=== PATIENT | male | born 1995 | race Caucasian/White ===

== ENCOUNTER 2018-07-19 23:25 | Inpatient (IN) ==
--- NOTE | 2018-07-19 23:29 | Emergency Department Note ---
Disposition Clinical Impression: Acute psychosis Disposition: Admitted As Inpatient Condition: Fair Time of Disposition: 00:08 General Adult HPI - General Stated complaint: si Time Seen by Provider: 07/19/18 23:26 - Related Data Home Medications Medication Instructions Recorded Confirmed Lurasidone HCl [Latuda] 80 mg PO DAILY 06/01/18 06/01/18 PARoxetine HCl [Paroxetine HCl] 20 mg PO DAILY 06/01/18 06/01/18 Prazosin [Minipress] 1 - 2 mg PO HS 06/01/18 06/01/18 Quetiapine Fumarate [Seroquel] 100 mg PO DAILY 06/01/18 06/01/18 Allergies Allergy/AdvReac Type Severity Reaction Status Date / Time No Known Allergies Allergy Verified 04/12/18 20:34 Past Medical History - Past Medical History Medical history: Reports: no medical history Surgical history: Reports: no surgical history Psychiatric history: Reports: anxiety, depression - Social History Smoking Status: Current every day smoker Smokeless Tobacco Status: No Alcohol use: Reports: none Drug use: Reports: none Course Vital Signs Temperature 97.6 F 07/19/18 23:29 Pulse Rate 72 07/19/18 23:29 Respiratory Rate 14 07/19/18 23:29 Blood Pressure 134/72 07/19/18 23:29 O2 Sat by Pulse Oximetry 99 07/19/18 23:29 Temperature 97.6 F 07/19/18 23:29 Pulse Rate 72 07/19/18 23:29 Respiratory Rate 14 07/19/18 23:29 Blood Pressure 134/72 07/19/18 23:29 O2 Sat by Pulse Oximetry 99 07/19/18 23:29 Oxygen Delivery Oxygen Delivery Room Air Medical Decision Making - Lab Data Lab results reviewed: Yes I reviewed the patient's lab results. Result diagrams: 07/19/18 23:31 Lab Results 07/19/18 07/19/18 Range/Units 23:31 23:31 WBC 7.4 (4.3-11.1) K/mcL RBC 5.23 (4.19-5.50) M/mcL Hgb 15.6 (12.9-16.9) g/dL Hct 44.9 (37.5-50.1) % MCV 85.9 (83.0-100.0) fL MCH 29.8 (28.0-33.3) pg MCHC 34.7 (31.6-35.5) g/dL RDW 12.6 (11.5-14.5) % Plt Count 232 (140-400) K/mcL MPV 10.4 (9.4-12.4) fL Immature Gran % 0.3 (0-4) % Seg Neutrophils % 60.5 % Lymphocytes % 28.5 % Monocytes % 7.6 % Eosinophils % 2.3 % Basophils % 0.8 % Neutrophils # 4.5 (1.6-8.9) K/mcL Lymphocytes # 2.1 (0.6-4.6) K/mcL Monocytes # 0.6 (0.0-1.3) K/mcL Eosinophils # 0.2 (0.0-0.6) K/mcL Basophils # 0.1 (0.0-0.2) K/mcL Urine Opiates Screen Negative (Jtazkg=778) ng/mL Ur Barbiturates Screen Negative (Hmnoqj=314) ng/mL Ur Phencyclidine Scrn Negative (Cutoff=25) ng/mL Ur Amphetamines Screen Negative (Pbpany=8168) ng/mL U Benzodiazepines Scrn Negative (Sicvqo=036) ng/mL Urine Cocaine Screen Negative (Cutoff= 300) ng/mL U Marijuana (THC) Screen Negative (Cutoff = 50) ng/mL Ur Drug Screen Interp See Below Attestation Statement - Attestation Attestation: I examined this patient and my medical decision-making was reviewed with the Resident Physician. I agree with the documented findings, disposition and treatment plan as described except to the extent set forth below. [id number] time provided Patient arrives by EMS with an involuntary admission for psychiatric hospitalization form due to psychosis, auditory command hallucinations, anxiety and depression. He does not appear in any acute distress on arrival. We will attempt to clear him medically for behavioral admission
--- NOTE | 2018-07-19 23:31 | Emergency Department Note ---
Disposition Clinical Impression: Acute psychosis Disposition: Admitted As Inpatient Condition: Fair General Adult HPI - General Stated complaint: si Time Seen by Provider: 07/19/18 23:26 Source: patient, EMS Mode of arrival: EMS Limitations: no limitations Nursing Notes Reviewed: Yes Vital Signs Reviewed: Yes - History of Present Illness HPI Narrative: 22-year-old male with significant past medical history of depression, anxiety presenting to the emergency department chief complaint of visual hallucinations and auditory hallucinations. Patient was sent by outpatient facility for medical clearance for admission for psychiatric services. In the room patient is alert and oriented. He denies any medical concerns or complaints at this time. Denies any intentional ingestion or self-harm. - Related Data Home Medications Medication Instructions Recorded Confirmed Lurasidone HCl [Latuda] 80 mg PO DAILY 06/01/18 06/01/18 PARoxetine HCl [Paroxetine HCl] 20 mg PO DAILY 06/01/18 06/01/18 Prazosin [Minipress] 1 - 2 mg PO HS 06/01/18 06/01/18 Quetiapine Fumarate [Seroquel] 100 mg PO DAILY 06/01/18 06/01/18 Allergies Allergy/AdvReac Type Severity Reaction Status Date / Time No Known Allergies Allergy Verified 04/12/18 20:34 All systems ED: reviewed and negative except as stated. Constitutional: Denies: fever, chills, weakness Eyes: Reports: as per HPI ENT ED: Reports: as per HPI Cardiovascular: Denies: chest pain, palpitations, dyspnea on exertion Respiratory: Denies: cough, dyspnea, wheezes Gastrointestinal: Denies: abdominal pain, nausea, vomiting Genitourinary: Reports: as per HPI Musculoskeletal: Reports: as per HPI Integumentary: Reports: as per HPI Neurological: Denies: weakness, numbness, paresthesias Psychiatric: Reports: auditory hallucinations, visual hallucinations Endocrine: Reports: as per HPI Hematological/Lymphatic: Reports: as per HPI Allergic/Immunologic: Reports: as per HPI Past Medical History - Past Medical History Attestation: Yes The following information was validated with the patient. Medical history: Reports: no medical history Surgical history: Reports: no surgical history Psychiatric history: Reports: anxiety, depression - Social History Smoking Status: Current every day smoker Smokeless Tobacco Status: No Alcohol use: Reports: none Drug use: Reports: none Physical Exam - General Limitations: no limitations General appearance: alert, in no apparent distress - Head Head exam: atraumatic, normocephalic, normal inspection - Eye Eye exam: Present: normal appearance. Absent: scleral icterus, conjunctival injection - ENT ENT exam: normal exam, mucous membranes moist - Neck Neck exam: Present: normal inspection, full ROM. Absent: tenderness, meningismus - Chest Chest inspection: Present: normal inspection, symmetric chest wall rise. Absent: tenderness, rash - Respiratory Respiratory exam: Present: normal lung sounds bilaterally, respiratory distress. Absent: wheezes, stridor - Cardiovascular Cardiovascular exam: Present: regular rate, normal rhythm, normal heart sounds - Abdominal Exam Abdominal exam: Present: soft, Non-Tender. Absent: distention, guarding, rebound - Extremities Exam Extremities exam: Present: normal inspection, full ROM - Neurological Exam Neurological exam: Present: alert, oriented X3 - Psychiatric Psychiatric exam: Present: depressed, flat affect - Skin Skin exam: Present: warm, intact Course Course Narrative: 22-year-old male presenting for medical clearance for psychiatric admission. In the room patient is alert and oriented 3 and hemodynamically stable. No medical concerns or complaints at this time. We will obtain basic laboratory analysis and urine analysis. Disposition will be admission to psychiatric services pending workup. Patient agrees with this plan. - Reevaluation(s) Reevaluation #1: Patient's laboratory analysis resulted. 1a agrees to accept the patient at this time. He remains alert and oriented 3 and hemodynamically stable. Patient has been pink slipped. Vital Signs Temperature 97.6 F 07/19/18 23:29 Pulse Rate 72 07/19/18 23:29 Respiratory Rate 14 07/19/18 23:29 Blood Pressure 134/72 07/19/18 23:29 O2 Sat by Pulse Oximetry 99 07/19/18 23:29 Temperature 97.6 F 07/19/18 23:29 Pulse Rate 72 07/19/18 23:29 Respiratory Rate 14 07/19/18 23:29 Blood Pressure 134/72 07/19/18 23:29 O2 Sat by Pulse Oximetry 99 07/19/18 23:29 Oxygen Delivery Oxygen Delivery Room Air Medical Decision Making - Lab Data Lab Results 07/19/18 Range/Units 23:31 Ur Drug Screen Interp See Below
[2018-07-19 23:59] LABS: Amphetamine Screen,Urine Negative ng/mL (Cutoff=1000); Barbiturate Screen,Urine Negative ng/mL (Cutoff=200); Benzodiazepines Screen,Urine Negative ng/mL (Cutoff=200); Cannabinoid Screen,Urine Negative ng/mL (Cutoff = 50); Cocaine Screen,Urine Negative ng/mL (Cutoff= 300); Opiate Screen,Urine Negative ng/mL (Cutoff=300); Phencyclidine Screen,Urine Negative ng/mL (Cutoff=25)
[2018-07-20 00:04] LABS: Basophils # 0.1 K/mcL (0.0-0.2); Basophils % 0.8 %; Eosinophils # 0.2 K/mcL (0.0-0.6); Eosinophils % 2.3 %; Hematocrit 44.9 % (37.5-50.1); Hemoglobin 15.6 g/dL (12.9-16.9); Immature Granulocytes % 0.3 % (0-4); Lymphocytes # 2.1 K/mcL (0.6-4.6); Lymphocytes % 28.5 %; Mean Corpuscular HGB Conc 34.7 g/dL (31.6-35.5); Mean Corpuscular Hemoglobin 29.8 pg (28.0-33.3); Mean Corpuscular Volume 85.9 fL (83.0-100.0); Mean Platelet Volume 10.4 fL (9.4-12.4); Monocytes # 0.6 K/mcL (0.0-1.3); Monocytes % 7.6 %; Neutrophils # 4.5 K/mcL (1.6-8.9); Platelet Count 232 K/mcL (140-400); Red Blood Count 5.23 M/mcL (4.19-5.50); Red Cell Distribution Width 12.6 % (11.5-14.5); Segmented Neutrophils % 60.5 %
[2018-07-20 00:10] LABS: Acetaminophen < 10 mcg/mL (10-20); Alanine Aminotransferase 17 Units/L (7-52); Albumin 4.4 g/dL (3.5-5.7); Albumin/Globulin Ratio 2.4 (1.1-2.2); Alkaline Phosphatase 89 Units/L (34-104); Aspartate Amino Transferase 14 Units/L (13-39); BUN/Creatinine Ratio 11 (6-26); Bilirubin,Total 0.4 mg/dL (0.3-1.0); Blood Urea Nitrogen 10 mg/dL (6-20); Calcium 8.8 mg/dL (8.6-10.3); Carbon Dioxide 27 mEq/L (23-29); Chloride 106 mEq/L (98-107); Ethanol < 10 mg/dL (Less than 10); Globulin 1.8 g/dL (2.4-3.5); Glucose 113 mg/dL (70-105); Osmolality,Calculated 290 (280-300); Potassium 3.9 mEq/L (3.5-5.1); Salicylate < 2.5 mg/dL (15.0-30.0); Sodium 140 mEq/L (136-145); Total Protein 6.2 g/dL (6.4-8.9); eGFR For Non-African Americans > 60 (> 60)
[2018-07-20] MEDS ORDERED: MOM Conc 10 ML UD.LIQ PO PRN (01:51)
[2018-07-20] MEDS ORDERED: *HR* LORazepam 2 MG/ML VIAL IM PRN (01:51)
[2018-07-20] MEDS ORDERED: Haloperidol Lactate 5 MG/ML VIAL IM PRN (01:51)
[2018-07-20] MEDS ORDERED: Mag Hydrox/Al Hydrox/Simeth 30 ML UDC PO PRN (01:51)
[2018-07-20] MEDS ORDERED: *HR* LORazepam 1 MG TABLET PO PRN (01:51)
[2018-07-20] MEDS ORDERED: hydrOXYzine pamoate 25 MG CAPSULE PO PRN (01:51)
[2018-07-20] MEDS ORDERED: Ibuprofen 400 MG TABLET PO PRN (01:51)
[2018-07-20] MEDS: Nicotine 2 MG GUM BC PRN (07:39)
[2018-07-20] MEDS: OXcarbazepine 150 MG TABLET PO SCH ×2 (09:25→21:15)
--- NOTE | 2018-07-20 14:29 | Psychiatry History & Physical ---
Date of Encounter: 07/20/18 Time of Encounter: 14:00 History of Present Illness Patient Stated Chief Complaint: I was hearing voices Medicare Admission Attestation: For traditional Medicare patients the provided hospital inpatient services are reasonable and necessary and in the case of services not specified as inpatient-only under 42 CFR 419.22 (n), that they are appropriately provided as inpatient services in accordance 42 CFR 412.3. For Critical Access Hospital the patient may reasonably be expected to be discharged or transferred to a hospital within 96 hours after admission to the Critical Access Hospital. Admitted From: Emergency Dept Plans for Post Hospital Care: Home History of Present Illness: Mr. Barnett is a 22 year old male ID the patient is a 22-year-old single white male he is a resident of [facility]. His middle under an involuntary hold. Chief complaint I want to go back to [facility]. I was hearing voices and seeing things. present illness. The patient reports a long-standing history of psychiatric disturbance he cannot give me precise information. The patient has been a resident of the [facility] and is hoping to have a place to live he is currently homeless. The patient is on the following regimen of medicines Seroquel 200 mg daily at bedtime oxcarbazepine 300 mg twice a day prazosin 1 mg daily at bedtime the 2-80 mg every afternoon with food Paxil 20 mg every morning. Patient was seen at [facility] he returned late from a walk. After this he was confronted about his behavior. Patient felt that having an intensification of hearing voices and seeing faces to features of his psychosis. 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 He has limited resources in the community. Past psychiatric history about age 11 or 12 he was seen for counseling and placed on psychiatric medicines in a clinic in [facility]. He later moved [place]. Past medical history surgeries none, illnesses none smokes one pack Family history of present 1 known a where his father and others had problems. Social history patient never he graduated from high school and then [place] he has an appointment Past Med Surg Social Fam HX - Past Medical History Source: patient Medical history: no medical history - Past Psychiatric History Psychiatric history: Reports: schizophrenia Family psychiatric history: Yes Family History of Suicide: None - Past Surgical History Surgical History: no surgical history - Social History Smoking Status: Current every day smoker Smokeless Tobacco Status: No Alcohol use: none Drug use: none Occupational status: previously employed Current living situation: [facility] Activity Level: Independent ambulation Recent Out of Country Travel Within the Last 8 Weeks: No Exposure or Possible Exposure to Illness During Travel: No Medications & Allergies Lurasidone HCl [Latuda] 80 mg PO DAILY 06/01/18 [History] PARoxetine HCl [Paroxetine HCl] 20 mg PO DAILY 06/01/18 [History] OXcarbazepine [Oxcarbazepine] 300 mg PO BID 07/20/18 [History] Prazosin [Minipress] 1 mg PO HS 07/20/18 [History] Quetiapine Fumarate [SEROquel] 200 mg PO HS PRN 07/20/18 [History] Allergy/AdvReac Type Severity Reaction Status Date / Time No Known Allergies Allergy Verified 04/12/18 20:34 Review of Systems Psychiatric: Reports: auditory hallucinations, visual hallucinations Exam - HEENT Head exam IM: Present: atraumatic Eye exam IM: Present: EOMI, normal appearance, PERRL ENT exam IM: Present: normal exam - Neurological Neurological exam: Present: CN II-XII intact - Respiratory Respiratory exam IM: Present: CTAB - GI/Abdominal GI/Abdominal exam IM: Present: normal bowel sounds, soft. Absent: tenderness - Extremities Extremities exam IM: Present: full ROM - Skin Skin exam IM: Present: dry, warm - Constitutional Vitals: Temp Pulse Resp BP Pulse Ox 99 F 77 18 132/71 99 07/20/18 09:00 07/20/18 09:00 07/20/18 09:00 07/20/18 09:00 07/20/18 09:00 General appearance: age & developmentally appropriate, well-groomed, well- nourished - Musculoskeletal Gait: normal Station: relaxed Strength & Tone: normal for patient - Psychiatric Patient Orientation: Yes Person, Yes Time, Yes Place Level of alertness: Alert Behavior: calm, cooperative Psychomotor activity: Normal Eye Contact: Maintains Eye Contact Mood Description: Euthymic/stable Affect description: congruent with mood, full range Speech Volume: Normal Speech pattern: normal rate, normal rhythm, normal tone, fluent, spontaneous Language & Vocabulary: consistent with education Thought Process: Linear, Goal Oriented Thought Content: No Suicidal ideation, No Homicidal ideation, No Overt delusions Perceptual Disturbances: Yes Auditory hallucinations, Yes Visual hallucinations Attention Span Ability: Capable of Sustained Attention Memory Description: Grossly Intact Patient Reliability: Reliable Historian Fund of knowledge: Yes abstraction ability, Yes below average Intelligence Estimate: Below Average Judgment: Fair Insight: Partial Results - Drug Levels and Toxicology Drug Levels and Toxicology: Drug Levels and Toxicity 07/19/18 07/19/18 23:31 23:31 Urine Opiates Screen Negative Acetaminophen < 10 L Ur Barbiturates Screen Negative Ur Phencyclidine Scrn Negative Ur Amphetamines Screen Negative U Benzodiazepines Scrn Negative Urine Cocaine Screen Negative U Marijuana (THC) Screen Negative Ethyl Alcohol < 10 - Labs Labs: Laboratory Last Values WBC 7.4 K/mcL (4.3-11.1) 07/19/18 23:31 RBC 5.23 M/mcL (4.19-5.50) 07/19/18 23:31 Hgb 15.6 g/dL (12.9-16.9) 07/19/18 23:31 Hct 44.9 % (37.5-50.1) 07/19/18 23:31 MCV 85.9 fL (83.0-100.0) 07/19/18 23:31 MCH 29.8 pg (28.0-33.3) 07/19/18 23:31 MCHC 34.7 g/dL (31.6-35.5) 07/19/18 23:31 RDW 12.6 % (11.5-14.5) 07/19/18 23:31 Plt Count 232 K/mcL (140-400) 07/19/18 23:31 MPV 10.4 fL (9.4-12.4) 07/19/18 23:31 Immature Gran % 0.3 % (0-4) 07/19/18 23:31 Seg Neutrophils % 60.5 % 07/19/18 23:31 Lymphocytes % 28.5 % 07/19/18 23:31 Monocytes % 7.6 % 07/19/18 23:31 Eosinophils % 2.3 % 07/19/18 23:31 Basophils % 0.8 % 07/19/18 23:31 Neutrophils # 4.5 K/mcL (1.6-8.9) 07/19/18 23:31 Lymphocytes # 2.1 K/mcL (0.6-4.6) 07/19/18 23:31 Monocytes # 0.6 K/mcL (0.0-1.3) 07/19/18 23:31 Eosinophils # 0.2 K/mcL (0.0-0.6) 07/19/18 23:31 Basophils # 0.1 K/mcL (0.0-0.2) 07/19/18 23:31 Sodium 140 mEq/L (136-145) 07/19/18 23:31 Potassium 3.9 mEq/L (3.5-5.1) 07/19/18 23:31 Chloride 106 mEq/L (98-107) 07/19/18 23:31 Carbon Dioxide 27 mEq/L (23-29) 07/19/18 23:31 BUN 10 mg/dL (6-20) 07/19/18 23:31 Creatinine 0.89 mg/dL (0.70-1.30) 07/19/18 23:31 Est GFR ( Amer) > 60 (> 60) 07/19/18 23:31 Est GFR (Non-Af Amer) > 60 (> 60) 07/19/18 23:31 BUN/Creatinine Ratio 11 (6-26) 07/19/18 23:31 Glucose 113 mg/dL (70-105) H 07/19/18 23:31 Calculated Osmolality 290 (280-300) 07/19/18 23:31 Calcium 8.8 mg/dL (8.6-10.3) 07/19/18 23:31 Total Bilirubin 0.4 mg/dL (0.3-1.0) 07/19/18 23:31 AST 14 Units/L (13-39) 07/19/18 23:31 ALT 17 Units/L (7-52) 07/19/18 23:31 Alkaline Phosphatase 89 Units/L (34-104) 07/19/18 23:31 Serum Total Protein 6.2 g/dL (6.4-8.9) L 07/19/18 23:31 Albumin 4.4 g/dL (3.5-5.7) 07/19/18 23:31 Globulin 1.8 g/dL (2.4-3.5) L 07/19/18 23:31 Albumin/Globulin Ratio 2.4 (1.1-2.2) H 07/19/18 23:31 Salicylates < 2.5 mg/dL (15.0-30.0) L 07/19/18 23:31 Urine Opiates Screen Negative ng/mL (Arnine=419) 07/19/18 23:31 Acetaminophen < 10 mcg/mL (10-20) L 07/19/18 23:31 Ur Barbiturates Screen Negative ng/mL (Xrdbkm=993) 07/19/18 23:31 Ur Phencyclidine Scrn Negative ng/mL (Cutoff=25) 07/19/18 23:31 Ur Amphetamines Screen Negative ng/mL (Owrjql=6580) 07/19/18 23:31 U Benzodiazepines Scrn Negative ng/mL (Lalbmj=148) 07/19/18 23:31 Urine Cocaine Screen Negative ng/mL (Cutoff= 300) 07/19/18 23:31 U Marijuana (THC) Screen Negative ng/mL (Cutoff = 50) 07/19/18 23:31 Ur Drug Screen Interp See Below 07/19/18 23:31 Ethyl Alcohol < 10 mg/dL (Less than 10) 07/19/18 23:31 Assessment and Plan (1) Acute exacerbation of chronic paranoid schizophrenia Current visit: Yes Status: Acute Plan: Admit inpatient for safety and stabilization, Close observation, Monitor sleep, Secure weapons Risks, benefits, side effects, alternatives discussed w/pt: Yes Patient agreeable to treatment: Yes Plans for Post Hospital Care: Home Estimated Length of Stay (Days): 4 (2) Cigarette nicotine dependence, uncomplicated Current visit: Yes Status: Chronic Plan: Monitor sleep, Other Risks, benefits, side effects, alternatives discussed w/pt: Yes Patient agreeable to treatment: Yes Plans for Post Hospital Care: Home (3) Alcohol use disorder, mild, in early remission, in controlled environment Current visit: Yes Status: Acute Plan: Other Risks, benefits, side effects, alternatives discussed w/pt: Yes Patient agreeable to treatment: Yes Plans for Post Hospital Care: Home
[2018-07-21] MEDS: OXcarbazepine 150 MG TABLET PO SCH ×2 (08:24→20:22)
[2018-07-21] MEDS: Nicotine 2 MG GUM BC PRN ×2 (10:20→14:47)
--- NOTE | 2018-07-21 12:53 | Psychiatry Progress Note ---
Date of Encounter: 07/21/18 Time of Encounter: 12:15 Subjective Interval history: ID the patient is a 22-year-old singlea on involuntary hold. Chief complaint I want to go back to [facility]. I was hearing voices and seeing things. Mr. present illness. The patient reports a long-standing history of psychiatric disturbance he cannot give me precise information. The patient has been a resident of the [facility] and is hoping to have a place to live he is currently homeless. The patient is on the following regimen of medicines Seroquel 200 mg daily at bedtime oxcarbazepine 300 mg twice a day prazosin 1 mg daily at bedtime the 2-80 mg every afternoon with food Paxil 20 mg every morning. Patient was seen at [facility] he returned late from a walk. After this he was confronted about his behavior. Patient felt that having an intensification of hearing voices and seeing faces to features of his psychosis. Pt is a 22 yo,, male, resident of [facility] who presents for Schizoaffective Depressed type . Pt noted that he feels much better. Pt denied any side effects to current medications. Pt noted he felt safe and comfortable on the unit and will tell staff I feel ready to go. Pt was in agreement with current treatment plan. Pt noted that he is doing alright today. Pt noted he slept alright about 8 hrs last night. Pt noted his appetite is good. Pt rated his depression a 0, on a scale of zero to ten with ten being the worst and zero being none. Pt rate his anxiety a 0, on the same scale. Pt denied any auditory or visual hallucinations. Pt denied any current thoughts to harm himself or anyone else. No TD noted, AIMS=0 Tobacco: 1ppd Alcohol: Denies any current Street: Denies any current Caffeine: 2-3 drinks per day Pt denies any hx of HIV, hep C, TBI or Seizures. Plan: 1.Interval hx 2.Continue current medications 3.Review current labs 4.Pt had an opportunity to ask questions and discuss current treatment plan. 5.Supportive therapy was provided 6.Pt encouraged to consider group or individual therapy 7.Pt was in agreement with treatment plan. 8. Pt was educated on the risks benefits and side effects of current medications Review of Systems Constitutional: Denies: fever, chills, weakness, weight change Eyes: Denies: eye pain, vision change Ears, Nose, Throat: Denies: ear pain, throat pain, dental pain, hearing loss, congestion Cardiovascular: Denies: chest pain, palpitations, dyspnea on exertion Respiratory: Denies: cough, dyspnea, wheezes Gastrointestinal: Denies: abdominal pain, nausea, vomiting, diarrhea, constipation Musculoskeletal: Denies: joint swelling, joint pain Neurological: Denies: headache, weakness, numbness, memory loss Psychiatric: Reports: auditory hallucinations, visual hallucinations Results - Vital Signs Vital Signs: Temp Pulse Resp BP Pulse Ox 98.3 F 78 20 127/65 99 07/21/18 09:00 07/21/18 09:00 07/21/18 09:00 07/21/18 09:00 07/21/18 09:00 Assessment and Plan (1) Acute psychosis Current visit: Yes Status: Acute Plan: Continue hospitalization, Close observation, Suicide Precautions per unit protocol, Encourage participation in unit milieu, Group Therapy, Monitor sleep, Monitor appetite Risks, benefits, side effects, alternatives discussed w/pt: Yes Patient agreeable to treatment: Yes (2) Acute exacerbation of chronic paranoid schizophrenia Current visit: Yes Status: Acute Plan: Continue hospitalization, Close observation, Suicide Precautions per unit protocol, Encourage participation in unit milieu, Group Therapy, Monitor sleep, Monitor appetite Risks, benefits, side effects, alternatives discussed w/pt: Yes Patient agreeable to treatment: Yes (3) Cigarette nicotine dependence, uncomplicated Current visit: Yes Status: Chronic Plan: Continue hospitalization, Close observation, Suicide Precautions per unit protocol, Encourage participation in unit milieu, Group Therapy, Monitor sleep, Monitor appetite Risks, benefits, side effects, alternatives discussed w/pt: Yes Patient agreeable to treatment: Yes (4) Alcohol use disorder, mild, in early remission, in controlled environment Current visit: Yes Status: Acute Plan: Continue hospitalization, Close observation, Suicide Precautions per unit protocol, Encourage participation in unit milieu, Group Therapy, Monitor sleep, Monitor appetite Risks, benefits, side effects, alternatives discussed w/pt: Yes Patient agreeable to treatment: Yes Consult Discharge Plan - Plan Psychiatry Exam - Constitutional Vitals: Temp Pulse Resp BP Pulse Ox 98.3 F 78 20 127/65 99 07/21/18 09:00 07/21/18 09:00 07/21/18 09:00 07/21/18 09:00 07/21/18 09:00 General appearance: age & developmentally appropriate, well-groomed, well- nourished - Musculoskeletal Gait: normal Station: relaxed Strength & Tone: normal for patient - Psychiatric Patient Orientation: Yes Person, Yes Time, Yes Place Level of alertness: Alert Behavior: calm, cooperative Psychomotor activity: Normal Eye Contact: Maintains Eye Contact Mood Description: Euthymic/stable Affect description: congruent with mood, full range Speech Volume: Normal Speech pattern: normal rate, normal rhythm, normal tone, fluent, spontaneous Language & Vocabulary: consistent with education Thought Process: Linear, Goal Oriented, Thought Blocking Thought Content: No Suicidal ideation, No Homicidal ideation, No Overt delusions Perceptual Disturbances: No Auditory hallucinations, No Visual hallucinations Attention Span Ability: Capable of Focused Attention Memory Description: Grossly Intact Patient Reliability: Reliable Historian Fund of knowledge: Yes abstraction ability, Yes aware of current events Intelligence Estimate: Average Judgment: Limited Insight: Partial
[2018-07-22] MEDS: OXcarbazepine 150 MG TABLET PO SCH ×2 (08:26→20:28)
[2018-07-22] MEDS: Nicotine 2 MG GUM BC PRN ×2 (10:17→17:14)
--- NOTE | 2018-07-22 11:07 | Psychiatry Progress Note ---
Date of Encounter: 07/22/18 Time of Encounter: 10:30 Subjective Interval history: Pt is a 22 yo,, male, resident of [facility] who presents for Schizoaffective Depressed type . Pt noted that he feels much better. Pt denied any side effects to current medications. Pt noted he felt safe and comfortable on the unit and will tell staff I feel ready to go. Pt was in agreement with current treatment plan. Pt noted that he is doing really good today. Pt noted he slept good about 8 hrs last night. Pt noted his appetite is good. Pt rated his depression a 0, on a scale of zero to ten with ten being the worst and zero being none. Pt rate his anxiety a 0, on the same scale. Pt denied any auditory or visual hallucinations. Pt denied any current thoughts to harm himself or anyone else. Chief complaint I want to go back to [facility]. I was hearing voices and seeing things. The patient reports a long-standing history of psychiatric disturbance he cannot give me precise information. The patient has been a resident of the [facility] and is hoping to have a place to live he is currently homeless. The patient is on the following regimen of medicines Seroquel 200 mg daily at bedtime oxcarbazepine 300 mg twice a day prazosin 1 mg daily at bedtime the 2-80 mg every afternoon with food Paxil 20 mg every morning. Patient was seen at [facility] he returned late from a walk. After this he was confronted about his behavior. Patient felt that having an intensification of hearing voices and seeing faces to features of his psychosis. No TD noted, AIMS=0 Tobacco: 1ppd Alcohol: Denies any current Street: Denies any current Caffeine: 2-3 drinks per day Pt denies any hx of HIV, hep C, TBI or Seizures. Plan: 1.Interval hx 2.Continue current medications 3.Review current labs 4.Pt had an opportunity to ask questions and discuss current treatment plan. 5.Supportive therapy was provided 6.Pt encouraged to consider group or individual therapy 7.Pt was in agreement with treatment plan. 8. Pt was educated on the risks benefits and side effects of current medications 9. [place] [facility] [place] pending continued stability and compliance Review of Systems Constitutional: Denies: fever, chills, weakness, weight change Eyes: Denies: eye pain, vision change Ears, Nose, Throat: Denies: ear pain, throat pain, dental pain, hearing loss, congestion Cardiovascular: Denies: chest pain, palpitations, dyspnea on exertion Respiratory: Denies: cough, dyspnea, wheezes Gastrointestinal: Denies: abdominal pain, nausea, vomiting, diarrhea, constipation Musculoskeletal: Denies: joint swelling, joint pain Neurological: Denies: headache, weakness, numbness, memory loss Psychiatric: Reports: auditory hallucinations, visual hallucinations Results - Vital Signs Vital Signs: Temp Pulse Resp BP Pulse Ox 97.8 F 74 18 116/71 99 07/22/18 09:00 07/22/18 09:00 07/22/18 09:00 07/22/18 09:00 07/22/18 09:00 Assessment and Plan (1) Acute psychosis Current visit: Yes Status: Acute Plan: Continue hospitalization, Close observation, Suicide Precautions per unit protocol, Encourage participation in unit milieu, Group Therapy, Monitor sleep, Monitor appetite Risks, benefits, side effects, alternatives discussed w/pt: Yes Patient agreeable to treatment: Yes (2) Acute exacerbation of chronic paranoid schizophrenia Current visit: Yes Status: Acute Plan: Continue hospitalization, Close observation, Suicide Precautions per unit protocol, Encourage participation in unit milieu, Group Therapy, Monitor sleep, Monitor appetite Risks, benefits, side effects, alternatives discussed w/pt: Yes Patient agreeable to treatment: Yes (3) Cigarette nicotine dependence, uncomplicated Current visit: Yes Status: Chronic Plan: Continue hospitalization, Close observation, Suicide Precautions per unit protocol, Encourage participation in unit milieu, Group Therapy, Monitor sleep, Monitor appetite Risks, benefits, side effects, alternatives discussed w/pt: Yes Patient agreeable to treatment: Yes (4) Alcohol use disorder, mild, in early remission, in controlled environment Current visit: Yes Status: Acute Plan: Continue hospitalization, Close observation, Suicide Precautions per unit protocol, Encourage participation in unit milieu, Group Therapy, Monitor sleep, Monitor appetite Risks, benefits, side effects, alternatives discussed w/pt: Yes Patient agreeable to treatment: Yes Consult Discharge Plan - Plan Additional Instructions: D/C pt back to [facility] on current medications if pt continues to remain sober. Pt to follow up with [facility] upon discharge as well. Referrals: NONE,PCP [Primary Care Provider] - Psychiatry Exam - Constitutional Vitals: Temp Pulse Resp BP Pulse Ox 97.8 F 74 18 116/71 99 07/22/18 09:00 07/22/18 09:00 07/22/18 09:00 07/22/18 09:00 07/22/18 09:00 General appearance: age & developmentally appropriate, well-groomed, well- nourished - Musculoskeletal Gait: normal Station: relaxed Strength & Tone: normal for patient - Psychiatric Patient Orientation: Yes Person, Yes Time, Yes Place Level of alertness: Alert Behavior: calm, cooperative, anxious Psychomotor activity: Normal Eye Contact: Maintains Eye Contact Mood Description: Euthymic/stable, Anxious Affect description: congruent with mood, full range Speech Volume: Normal Speech pattern: normal rate, normal rhythm, normal tone, fluent, spontaneous Language & Vocabulary: consistent with education Thought Process: Linear, Goal Oriented Thought Content: No Suicidal ideation, No Homicidal ideation, No Overt delusions, Yes Grandiose delusion Perceptual Disturbances: No Auditory hallucinations, No Visual hallucinations Attention Span Ability: Capable of Sustained Attention Memory Description: Grossly Intact Patient Reliability: Questionable Historian Fund of knowledge: Yes average, Yes aware of current events Intelligence Estimate: Average Judgment: Limited Insight: Minimal
[2018-07-23] MEDS: OXcarbazepine 150 MG TABLET PO SCH (08:28)
[2018-07-23 09:07] VITALS: BP 116/67
[2018-07-23] MEDS: Nicotine 2 MG GUM BC PRN ×2 (11:15→14:48)
--- NOTE | 2018-07-23 16:27 | Discharge Summary ---
Date of Encounter: 07/25/18 Time of Encounter: 16:25 Diagnosis - Discharge Diagnosis (1) Acute exacerbation of chronic paranoid schizophrenia Status: Acute Comments: Patient continuing on medication that he has been on in past (2) Cigarette nicotine dependence, uncomplicated Priority: Secondary Status: Chronic Medications - Discharge Medications Lurasidone HCl [Latuda] 80 mg PO DAILY 06/01/18 [History] PARoxetine HCl [Paroxetine HCl] 20 mg PO DAILY 06/01/18 [History] OXcarbazepine [Oxcarbazepine] 300 mg PO BID 07/20/18 [History] Prazosin [Minipress] 1 - 2 mg PO HS 07/20/18 [History] Quetiapine Fumarate [Seroquel] 200 mg PO HS PRN 07/20/18 [History] Allergy/AdvReac Type Severity Reaction Status Date / Time No Known Allergies Allergy Verified 07/23/18 10:51 Results Procedures and tests throughout hospitalization: Completed Lab Orders Category Date Time Status Acetaminophen Stat Lab 07/19/18 23:31 Completed Complete Blood Count [HEME] Stat Lab 07/19/18 23:31 Completed Comprehensive Metabolic Panel Stat Lab 07/19/18 23:31 Completed Ethanol Stat Lab 07/19/18 23:31 Completed Salicylate Stat Lab 07/19/18 23:31 Completed rapid urine drug screen [Drug Screen, Urine] [UCHEM] Lab 07/19/18 23:31 Completed Stat Provider Date of admission: 07/20/18 00:19 Primary care physician: PCP NONE Discharging clinician: Dee Lucero Psychiatry Exam - Constitutional Vitals: Temp Pulse Resp BP Pulse Ox 98.9 F 75 16 116/67 100 07/23/18 09:00 07/23/18 09:00 07/23/18 09:00 07/23/18 09:00 07/23/18 09:00 General appearance: age & developmentally appropriate, well-groomed, well- nourished - Musculoskeletal Gait: normal Station: relaxed Strength & Tone: normal for patient - Psychiatric Patient Orientation: Yes Person, Yes Time, Yes Place Level of alertness: Alert Behavior: calm, cooperative Psychomotor activity: Normal Eye Contact: Maintains Eye Contact Mood Description: Euthymic/stable Affect description: congruent with mood, full range Speech Volume: Normal Speech pattern: normal rate, normal rhythm, normal tone, fluent, spontaneous, clear, coherent Language & Vocabulary: consistent with education Thought Process: Linear, Goal Oriented Thought Content: No Suicidal ideation, No Homicidal ideation, No Overt delusions Perceptual Disturbances: No Auditory hallucinations, No Visual hallucinations Attention Span Ability: Capable of Focused Attention Memory Description: Grossly Intact Patient Reliability: Reliable Historian Fund of knowledge: Yes average, Yes aware of current events Intelligence Estimate: Average Judgment: Fair Insight: Partial Hospital Course Hospital course: Mr. Barnett is a 22 year old male admitted for increase in auditory hallucinations and visual hallucinations AT the time of admission patient taking oxcarbazepine 300mg BID, Prazosin 1mg/d,Paxil 20mg/d, Latuda 80mg/d and Seroquel 200g/hs prn. Patient was homeless at admission and was hoping to reutrn to [facility]. Patient demonstrated improvement in the hospital milieu and denies A/V hallucinations at the time of discharge. Time spent discussing smoking cessation with patient: 3 to 10 minutes Does patient wish to continue nicotine replacement upon disc: No - Time Spent with Patient Total time spent providing and/or coordinating discharge services: Less than 30 minutes Assessment and Plan - Patient/Caregiver Discharge Instructions Activity: resume usual activities as tolerated Diet: regular diet Additional Instructions: D/C pt back to [facility] on current medications if pt continues to remain sober. Pt to follow up with [facility] upon discharge as well. - Follow up Plan Follow up with: NONE,PCP [Primary Care Provider] - Functional capacity at discharge: independent ambulation Disposition: Home, Self-Care Quality - Multiple Antipsychotics Patient discharged on 2 or more antipsychotic medications: Yes (Seroquel is low dose and a prn for sleep and mood) - Justification Documentation of: Other justification (Seroquel is low dose used as a prn for sleep, mood) Procedures - Procedures Procedures: Medication Management, Crisis Stabilization, Supportive Therapy, Group Therapy, Psychoeducational Therapy
== END 2018-07-23 17:35 | disposition home or self-care (01) | DRG 750 ==
LOC: EMEROOARM 23:25 → 1ANU 07-20 00:19 → SUATTDRO 07-20 00:19 → 1ANU 07-20 00:56
PROVIDERS: ADMIT Psychiatry & Neurology Forensic Psychiatry; ATTEND Psychiatry & Neurology Psychiatry

== ENCOUNTER 2019-04-06 20:55 | Observation (INO) ==
[2019-04-06] MEDS ORDERED: *HR* LORazepam 2 MG/ML VIAL IM ONE (21:06)
[2019-04-06] MEDS ORDERED: 0.9 % Sodium Chloride 1,000 ML IVC ONE ×2 (21:06→21:07)
[2019-04-06] MEDS ORDERED: *HR* LORazepam 2 MG/ML VIAL IVP ONE (21:27)
[2019-04-06 21:56] LABS: Basophils # 0.1 K/mcL (0.0-0.2); Basophils % 0.6 %; Eosinophils # 0.2 K/mcL (0.0-0.6); Hematocrit 45.8 % (37.5-50.1); Hemoglobin 16.3 g/dL (12.9-16.9); Immature Granulocytes % 0.4 % (0-4); Lymphocytes # 2.1 K/mcL (0.6-4.6); Lymphocytes % 25.4 %; Mean Corpuscular HGB Conc 35.6 g/dL (31.6-35.5); Mean Corpuscular Hemoglobin 30.4 pg (28.0-33.3); Mean Corpuscular Volume 85.3 fL (83.0-100.0); Mean Platelet Volume 9.8 fL (9.4-12.4); Monocytes # 0.6 K/mcL (0.0-1.3); Monocytes % 6.8 %; Neutrophils # 5.4 K/mcL (1.6-8.9); Platelet Count 299 K/mcL (140-400); Red Blood Count 5.37 M/mcL (4.19-5.50); Red Cell Distribution Width 12.8 % (11.5-14.5); Segmented Neutrophils % 64.8 %; White Blood Count 8.4 K/mcL (4.3-11.1)
[2019-04-06 22:18] LABS: Alanine Aminotransferase 8 Units/L (7-52); Albumin 4.4 g/dL (3.5-5.7); Albumin/Globulin Ratio 2.1 (1.1-2.2); Alkaline Phosphatase 89 Units/L (34-104); Aspartate Amino Transferase 14 Units/L (13-39); BUN/Creatinine Ratio 10 (6-26); Bilirubin,Direct 0.1 mg/dL (0.0-0.2); Bilirubin,Indirect 0.3 mg/dL (0.0-1.2); Bilirubin,Total 0.4 mg/dL (0.3-1.0); Blood Urea Nitrogen 9 mg/dL (6-20); Calcium 8.9 mg/dL (8.6-10.3); Carbon Dioxide 13 mEq/L (23-29); Chloride 112 mEq/L (98-107); Globulin 2.1 g/dL (2.4-3.5); Glucose 76 mg/dL (70-105); Osmolality,Calculated 289 (280-300); Potassium 3.5 mEq/L (3.5-5.1); Sodium 141 mEq/L (136-145); Total Protein 6.5 g/dL (6.4-8.9); Troponin I < 0.03 ng/mL (< 0.04); eGFR For African Americans > 60 (> 60); eGFR For Non-African Americans > 60 (> 60)
[2019-04-06 22:36] LABS: Ethanol 121 mg/dL (Less than 10)
[2019-04-07 00:01] LABS: Bilirubin,Urine Negative (Negative); Blood,Urine Negative (Negative); Clarity,Urine Clear (Clear); Color,Urine Yellow (Yellow); Glucose,Urine (UA) Normal (Normal); Ketones,Urine Trace mg/dL (Negative); Leukocyte Esterase,Urine Negative (Negative); Nitrite,Urine Negative (Negative); PH,Urine 6.5 pH Units (5.0-8.0); Protein,Urine Negative (Neg-Trace); Specific Gravity,Urine 1.011 (1.010-1.025); Urobilinogen,Urine Normal (Normal)
[2019-04-07 00:11] LABS: Amphetamine Screen,Urine Negative ng/mL (Cutoff=1000); Barbiturate Screen,Urine Negative ng/mL (Cutoff=200); Benzodiazepines Screen,Urine Negative ng/mL (Cutoff=200); Cannabinoid Screen,Urine Negative ng/mL (Cutoff = 50); Cocaine Screen,Urine Negative ng/mL (Cutoff= 300); Opiate Screen,Urine Negative ng/mL (Cutoff=300); Phencyclidine Screen,Urine Negative ng/mL (Cutoff=25)
[2019-04-07] MEDS ORDERED: 0.9 % Sodium Chloride 1,000 ML IVC SCH (04:45)
[2019-04-07] MEDS ORDERED: *HR* LORazepam 2 MG/ML VIAL IVP PRN ×3 (04:47)
[2019-04-07] MEDS ORDERED: Naloxone 0.4 MG/ML INJ IVP PRN (05:09)
[2019-04-07 06:32] LABS: Basophils % 0.4 %; Eosinophils # 0.2 K/mcL (0.0-0.6); Eosinophils % 2.3 %; Hematocrit 45.4 % (37.5-50.1); Hemoglobin 15.4 g/dL (12.9-16.9); Immature Granulocytes % 0.2 % (0-4); Lymphocytes # 2.4 K/mcL (0.6-4.6); Mean Corpuscular HGB Conc 33.9 g/dL (31.6-35.5); Mean Corpuscular Hemoglobin 30.7 pg (28.0-33.3); Mean Corpuscular Volume 90.6 fL (83.0-100.0); Mean Platelet Volume 10.3 fL (9.4-12.4); Monocytes # 0.7 K/mcL (0.0-1.3); Monocytes % 7.9 %; Neutrophils # 5.7 K/mcL (1.6-8.9); Platelet Count 240 K/mcL (140-400); Red Blood Count 5.01 M/mcL (4.19-5.50); Red Cell Distribution Width 13.1 % (11.5-14.5); Segmented Neutrophils % 63.2 %; White Blood Count 9.1 K/mcL (4.3-11.1)
[2019-04-07 06:53] LABS: Alanine Aminotransferase 7 Units/L (7-52); Albumin 4.1 g/dL (3.5-5.7); Albumin/Globulin Ratio 2.4 (1.1-2.2); Alkaline Phosphatase 87 Units/L (34-104); Aspartate Amino Transferase 12 Units/L (13-39); BUN/Creatinine Ratio 13 (6-26); Bilirubin,Total 0.5 mg/dL (0.3-1.0); Blood Urea Nitrogen 11 mg/dL (6-20); Calcium 8.7 mg/dL (8.6-10.3); Carbon Dioxide 26 mEq/L (23-29); Chloride 109 mEq/L (98-107); Globulin 1.7 g/dL (2.4-3.5); Glucose 82 mg/dL (70-105); Osmolality,Calculated 294 (280-300); Potassium 3.8 mEq/L (3.5-5.1); Sodium 143 mEq/L (136-145); Total Protein 5.8 g/dL (6.4-8.9); eGFR For African Americans > 60 (> 60); eGFR For Non-African Americans > 60 (> 60)
[2019-04-07] MEDS: Ibuprofen 600 MG TABLET PO PRN ×2 (12:51→20:56)
[2019-04-07] MEDS ORDERED: Acetaminophen 325 MG TABLET PO PRN (16:10)
[2019-04-07] MEDS: OXcarbazepine 150 MG TABLET PO SCH (20:03)
[2019-04-07] MEDS: hydrOXYzine pamoate 25 MG CAPSULE PO SCH (20:03)
[2019-04-07] MEDS ORDERED: QUEtiapine Fumarate 300 MG TABLET PO SCH (21:00)
[2019-04-08] MEDS ORDERED: PARoxetine 20 MG TABLET PO SCH (09:00)
[2019-04-08] MEDS: hydrOXYzine pamoate 25 MG CAPSULE PO SCH (09:05)
[2019-04-08] MEDS: OXcarbazepine 150 MG TABLET PO SCH (09:05)
[2019-04-08] MEDS: Ibuprofen 600 MG TABLET PO PRN (09:05)
[2019-04-08 11:54] VITALS: BP 106/55
== END 2019-04-08 17:14 | disposition other institution (70) ==
LOC: EMEROOARM 20:55 → 3BNU 20:55 → SUATTDRO 04-07 04:13 → 3BNU 04-07 04:50
PROVIDERS: ADMIT Pediatrics; ATTEND Internal Medicine